=== PATIENT | male | born 1980 | race African-American/Black ===

== ENCOUNTER 2019-03-03 22:55 | Inpatient (IN) | payer OTHER ==
[~2019-03-03] VITALS: Ht 176.5 cm; Wt 106.3 kg
--- NOTE | 2019-03-03 22:45 | NUR ---
The patient, AGUSTÍN MILIAN, 38 y/o, M admitted by DALE MORFIN MD, was given written information regarding hospital policies, unit procedures and contact persons. Patient was a direct admit from [facility] ED, the patient was transferred via EMS. Valuables were checked and noted. The patient is currently laying in bed with no complaints at this time. This RN will continue to monitor the patient at this time.
[2019-03-03 23:07] VITALS: BP 134/80
[2019-03-03] MEDS ORDERED: ZOLPIDEM 5 MG TABLET. PO PRN (23:30)
[2019-03-04] VITALS (7 sets, daily range): BP systolic 105–136; BP diastolic 40–90
[2019-03-04] MEDS ORDERED: NAPR-514 PO
[2019-03-04 04:21] LABS: BASO % 0 % (0-3); EOS # 0.1 x10^3/uL (0.0-0.7); EOS % 2 % (0-3); HEMATOCRIT 39.7 % (39.0-53.0); LYMPH # 2.1 x10^3/uL (1.0-4.8); LYMPH % 38 % (24-48); MEAN CORPUSCULAR HEMOGLOBIN 27 pg (25-35); MEAN CORPUSCULAR HGB CONC 33 g/dL (31-37); MEAN CORPUSCULAR VOLUME 81 fL (79-100); MONO # 0.6 x10^3/uL (0.0-1.1); MONO % 11 % (0-9); NEUT # 2.7 x10^3/uL (1.8-7.7); NEUT % 49 % (31-73); PLATELET COUNT 243 x10^3/uL (140-400); RED BLOOD COUNT 4.87 x10^6/uL (4.30-5.70); RED CELL DISTRIBUTION WIDTH 16.5 % (11.5-14.5); WHITE BLOOD COUNT 5.4 x10^3/uL (4.0-11.0)
[2019-03-04 04:51] LABS: ALBUMIN 3.9 g/dL (3.4-5.0); CALCIUM 8.9 mg/dL (8.5-10.1); CREATININE 1.3 mg/dL (0.7-1.3); GFR 74.8; PHOSPHORUS 4.3 mg/dL (2.6-4.7); POTASSIUM 3.9 mmol/L (3.5-5.1)
[2019-03-04] MEDS: IV NORMAL SALINE 1000ML BAG 1,000 ML IV SCH ×2 (11:15→20:50)
--- NOTE | 2019-03-04 13:42 | HP ---
ADMIT DATE: CHIEF COMPLAINT: Myalgias. HISTORY OF PRESENT ILLNESS: The patient is a pleasant middle-aged male who was out in the heat yesterday. He also did a lot of heavy lifting, I think he was doing some type of a competition. Basically presented with myalgias. We checked a CPK level. He has some rhabdomyolysis with a CPK of 1300. We are admitting the patient with IV fluids with frequent checks of his CPK levels. PAST MEDICAL HISTORY: Benign. ALLERGIES: None. FAMILY HISTORY: Diabetes. SOCIAL HISTORY: Does not drink, smoke or take drugs. He is in the . MEDICATIONS: Reviewed, please refer to the MRAD. REVIEW OF SYSTEMS: GENERAL: No history of weight change, weakness or fevers. SKIN: No bruising, hair changes or rashes. EYES: No blurred, double or loss of vision. NOSE AND THROAT: No history of nosebleeds, hoarseness or sore throat. HEART: No history of palpitations, chest pain or shortness of breath on exertion. LUNGS: Denies cough, hemoptysis, wheezing or shortness of breath. GASTROINTESTINAL: Denies changes in appetite, nausea, vomiting, diarrhea or constipation. GENITOURINARY: No history of frequency, urgency, hesitancy or nocturia. NEUROLOGIC: Denies history of numbness, tingling, tremor or weakness. PSYCHIATRIC: No history of panic, anxiety or depression. ENDOCRINE: No history of heat or cold intolerance, polyuria or polydipsia. EXTREMITIES/MUSCULOSKELETAL: He complaints of muscle pain. Denies muscle weakness, joint pain, pain on walking or stiffness. PHYSICAL EXAMINATION: VITAL SIGNS: Temperature afebrile, pulse 70, respirations 18, blood pressure 131/60. GENERAL: He is alert, cooperative. HEART: Normal S1, S2. LUNGS: Clear to auscultation. ABDOMEN: Soft, positive bowel sounds. EXTREMITIES: Trace edema. SKIN: No rash. ENDOCRINE: No thyromegaly. LYMPHATICS: No cervical nodes. HEMATOPOIETIC: No bruises. PSYCHIATRIC: He is Stable. LABORATORY DATA: CPK is 1358. ASSESSMENT AND PLAN: Rhabdomyolysis. The patient has been admitted. We have given him IV fluids. We will recheck a CPK level in the morning. Hope to discharge tomorrow if stable. For now, we will continue home meds and deep venous thrombosis prophylaxis. Full code. NASIM RON DO DR: Emi JOB#: [id number] / [id number]
[2019-03-05 07:00] VITALS: BP 113/70
[2019-03-05] MEDS: IV NORMAL SALINE 1000ML BAG 1,000 ML IV SCH (08:52)
[2019-03-05 11:00] VITALS: BP 109/73
--- NOTE | 2019-03-05 11:14 | DS ---
DATE OF DISCHARGE: 03/05/2019 ADMISSION DIAGNOSIS: Rhabdomyolysis. DISCHARGE DIAGNOSIS: Resolving rhabdomyolysis secondary to heat exposure and excessive exertion. HOSPITAL COURSE: The patient is a pleasant 38-year-old healthy male, who was exerting himself too much. He was apparently in some type of physical competition out in the sun. He presented with muscle weakness. He was noted to have a CPK level of 1300 consistent with rhabdomyolysis. For the past couple of days, we gave him IV fluids, his CPK level is down to 700. He feels great. He wants to go home. I will plan to discharge with close outpatient followup. PHYSICAL EXAMINATION: CARDIOVASCULAR: Heart tones are normal. LUNGS: Clear. ABDOMEN: Soft. EXTREMITIES: No edema. SKIN: No rashes. DISPOSITION: Home. ACTIVITY: As tolerated. DIET: Low sodium. MEDICATIONS: Please see the MRAD. TOTAL TIME: 32 minutes. NASIM RON DO DR: TAO/ubaldo JOB#: [id number] / [id number]
--- NOTE | 2019-03-05 12:44 | NUR ---
Discharge Note: QUINT[facility] MILIAN [facility] Discharge instructions and discharge home medications reviewed with Patient and a copy given. All questions have been answered and understanding verbalized. The following instructions and handouts were given: Discharge Instructions and Rhabdomyolsis Education Discontinued lines and drains: PIV removed, Catheter intact. Patient discharged to Home with Self-Care via Spouse's Vehicle. Patient was stable on discharge and was given education and lab values for diagnosis of Rhabdomylosis. Patient expressed understanding for need to follow up with PCP in 1 week and have labs re-checked.
== END 2019-03-05 11:55 | disposition home or self-care (01) | DRG 558 ==
LOC: EDBD 22:55 → 5 SOUTH 22:55
PROVIDERS: ADMIT Family Medicine; ATTEND Family Medicine
DX: M62.82 Rhabdomyolysis (principal); Z83.3 Family history of diabetes mellitus; Z79.899 Other long term (current) drug therapy; X30.XXXA Exposure to excessive natural heat, initial encounter; Y93.89 Activity, other specified; Y92.89 Other specified places as the place of occurrence of the external cause; Y99.8 Other external cause status
CPT/HCPCS: 36415; 80069; 82550; 85025; J7030; 99285-25